=== PATIENT | male | born 1940 | race Caucasian/White ===

== ENCOUNTER 2020-02-20 10:10 | IRF | payer MEDICARE, OTHER, SELFPAY ==
--- NOTE | 2020-02-20 10:25 | ADMGEN ---
This patient, Weston Denise, was admitted to [facility] Room 220-02. Patient/family oriented to hospital policies and general routines including ID bracelet, bed and alarms, visiting hours, pain management, procedures, bathroom and other care routines, personal items, smoking policy, room service/diet, and visiting hours. Information on how to activate the Rapid Response Team has been discussed. Patient/Family are encouraged to report perceived risks to care and to ask questions if they do not understand what they are told or what they should do. 1010 Patient arrived to floor, accompanied by daughter,, in own w/c. He is alert and oriented, no c/o pain or discomfort at this time. Was transported via private auto
--- NOTE | 2020-02-20 10:30 | PC.NURSE ---
All meds confirmed with [facility] pharmacy to be current and up to date as entered
[2020-02-20 10:47] VITALS: BP 151/51; PULSE 82; RESP 20; TEMP 36.3; O2SAT 100; BMI 28.2
[2020-02-20 10:56] VITALS: BP 151/51; PULSE 82; RESP 20; TEMP 36.3; O2SAT 100; BMI 28.2
[2020-02-20 11:12] VITALS: BMI 27.4
--- NOTE | 2020-02-20 11:37 | WPDREHABHP ---
H&P: HPI History of Present Illness Date/Time: 02/20/20 11:37 HISTORY OF PRESENT ILLNESS: The patient's primary rehab impairment category is [] amputation of the left lower extremity The etiologic diagnosis is [] peripheral vascular disease is status post left [id number] amputation I saw this patient [id number] on [] February 20, 2020 at 11:45 a.m. The patient is a [] 79 years old right-handed male who presented to [facility] in [place] to establish care following a left anlfo-cez-rluk amputation on October 24, 2019 due to complication of severe peripheral vascular disease, diabetes mellitus with recalcitrant wounds, and osteomyelitis. Prior to the amputation, the patient was totally independent at ambulation level. The postoperative course was uncomplicated. The patient verbally expressed his desire to ambulate with a prosthesis and be independent at ambulation level with all ADLs / IADL S. at this time, the patient requires supervision, the patient's stump has healed and he has received his left permanent prosthesis. He is ready to complete intensive prosthetic training. The patient's vascular surgeon verifies that the patient needs inpatient acute rehabilitation for prosthetic training due to his left [id number]-[id number] amputation. The physician certify that the patient can tolerate physical and occupational therapy for 3 hours per day, 5 days a week. His medical status is subject to change given the sudden dramatic change in activity level. The patient requires nursing services for infection protection , medical management,diabetes management, skin integrity management and care and patient education. He will require close monitoring of his blood pressure blood sugar as well as his skin integrity in light of this change in mobility. The patient currently demonstrates decreased strength and endurance, impaired balance, and gait dysfunction. An intensive 5 day course is anticipated to return the patient to an independent level at ambulation level. COVID: the patient has not travelled outside the [place] or head contact with someone who is ill that has traveled outside the [place] in the past 21 days. The patient has not traveled to an area of the [place] that is experiencing known transmission of the Coronavirus and has not had close personal contact with anyone that has ,the patient does not have a fever, the patient is not experiencing lower respiratory illness symptoms therapy was initiated at the acute care facility and the patient was transferred to us from home on February 20, 2020 falls or surgery patient has had no major surgery in the last 100 days. The patient had major surgery on 10/24 2019, the patient has no had any falls in the past year, The patient has had no fall with injury in the past years The patient has had [no] major surgeries in the 100 days prior to admission, had [no] falls in the past year, had [no] falls with injury in the past year. PAST MEDICAL HISTORY: [] congestive heart failure, diabetes mellitus type 2, myocardial infarction in 2002, arthritis, CAD status post CABG x6, left heel ulcer with wound VAC placement, hyperlipidemia, hypertension, bilateral lower extremity peripheral neuropathy, osteomyelitis, peptic ulceration in 2014, peripheral vascular disease or bilateral lower extremities documented in November of 2018. 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 Patient is . The patient is a current smokeless tobacco user. He denies smoking tobacco, alcohol use, or illicit drugs use. FAMILY HISTORY: [] Mother with cancer, brother with cardiac problem [email or web address]
[2020-02-20 17:51] LABS: Glucose Point of Care 88 (65-105)
[2020-02-20 20:00] VITALS: PULSE 52; RESP 20; O2SAT 96
[2020-02-20] MEDS: INSULIN GLARGINE (*BKC) 100 UNITS/ML 40 UNITS SUB-Q (20:02)
[2020-02-20] MEDS: PRAVASTATIN SODIUM 20 MG TABLET 40 MG PO (20:02)
[2020-02-20 20:07] VITALS: BP 115/43; PULSE 52; RESP 20; TEMP 36.6; O2SAT 96
[2020-02-20 20:52] LABS: Glucose Point of Care 128 (65-105)
[2020-02-21 04:59] LABS: Basophils Absolute Auto 0.1 K/mm3 (0.0-0.1); Basophils Percent Auto 0.6 % (0.2-1.2); Eosinophils Absolute Auto 0.1 K/mm3 (0-0.3); Eosinophils Percent Auto 1.1 % (0-4.4); Hematocrit 32.9 % (42.0-52.0); Hemoglobin 10.9 g/dL (14.0-18.0); Immature Granulocyte Absolute 0.06 K/mm3 (0.00-0.031); Immature Granulocyte Percent A 0.7 % (0-0.5); Lymphocytes Absolute Auto 2.24 K/mm3 (0.9-3.2); Lymphocytes Percent Auto 25.3 % (18.3-44.2); Mean Corpuscular HGB Conc 33.1 g/dl (32-36); Mean Corpuscular Hemoglobin 27.5 pg (26-34); Mean Corpuscular Volume 82.9 fl (80-100); Mean Platelet Volume 11.1 fl (7.4-10.4); Monocytes Absolute Auto 0.8 K/mm3 (0.1-0.6); Monocytes Percent Auto 8.8 % (2.6-8.5); Neutrophils Absolute Auto 5.6 K/mm3 (1.3-6.7); Neutrophils Percent Auto 63.5 % (45.5-73.1); Platelet Count Result 225 k/mm3 (150-375); Red Blood Count 3.97 M/mm3 (4.6-6.20); Red Cell Distribution Width 13.8 % (11.5-14.5); White Blood Count 8.8 K/mm3 (4.5-10.0)
[2020-02-21 05:20] LABS: Anion Gap 9 mmol/L (8-16); Blood Urea Nitrogen 21 mg/dL (9-20); Carbon Dioxide 27 mmol/L (22-30); Chloride 94 mmol/L (98-107); Estimated CRCL calculation 72 ml/min; Estimated Glomerular Filt Rate > 60; Glucose 68 mg/dL (75-110); Potassium 4.2 mmol/L (3.4-5.0); Sodium 130 mmol/L (137-145)
[2020-02-21 05:22] VITALS: BP 128/60; PULSE 68; RESP 18; TEMP 36.4; O2SAT 97
[2020-02-21 05:40] LABS: Hemoglobin A1C 6.5 % (<5.7)
[2020-02-21 07:27] LABS: Glucose Point of Care 71 (65-105)
[2020-02-21 08:19] VITALS: PULSE 70
[2020-02-21] MEDS: lisinopriL 10 MG TABLET PO (08:19)
[2020-02-21] MEDS: hydroCHLOROthiazide 12.5 MG CAPSULE PO (08:19)
[2020-02-21] MEDS: metFORMIN HCL XR 500 MG TAB.SR.24H 1000 MG PO ×2 (08:19→16:58)
[2020-02-21] MEDS: METOPROLOL SUCCINATE EXT REL 50 MG TABCR PO (08:19)
[2020-02-21 11:55] VITALS: BMI 27.4
[2020-02-21 14:00] VITALS: BP 99/47; PULSE 76; RESP 18; TEMP 36.3; O2SAT 95
[2020-02-21] MEDS: PRAVASTATIN SODIUM 20 MG TABLET 40 MG PO (20:25)
[2020-02-21 20:27] VITALS: BP 110/50; PULSE 75; RESP 18; TEMP 36.1; O2SAT 97
[2020-02-21] MEDS: INSULIN GLARGINE (*BKC) 100 UNITS/ML 40 UNITS SUB-Q (20:37)
[2020-02-22 02:43] LABS: Glucose Point of Care 134 (65-105)
[2020-02-22 05:19] VITALS: BP 135/57; PULSE 58; RESP 18; TEMP 36.1; O2SAT 98
[2020-02-22 06:28] LABS: Glucose Point of Care 79 (65-105)
[2020-02-22] MEDS: hydroCHLOROthiazide 12.5 MG CAPSULE PO (09:35)
[2020-02-22] MEDS: metFORMIN HCL XR 500 MG TAB.SR.24H 1000 MG PO ×2 (09:35→17:31)
[2020-02-22] MEDS: lisinopriL 10 MG TABLET PO (09:35)
[2020-02-22 09:36] VITALS: PULSE 58
[2020-02-22] MEDS: METOPROLOL SUCCINATE EXT REL 50 MG TABCR PO (09:36)
--- NOTE | 2020-02-22 09:53 | WPDNEURORHBP ---
Subjective Date/time seen: 02/22/20 09:53 79 years old has been admitted to the [facility] rehab floor for the complaints of amputation of the left lower extremity secondary to peripheral vascular disease and requiring the training with the prosthesis. Routine lab up until now is unremarkable except the patient is anemic Review of Systems Review of Systems: All systems reviewed & are unremarkable except as noted in HPI and below Functional Status Ambulation Ability Ability to Ambulate 10 Feet: Minimum Assistance X 1 Ambulation Assistive Devices: Walker, Wheeled Exam Narrative: Exam Narrative: on examination patient is awake alert cooperative in no obvious acute distress speech nor dysphasic not dysarthric ear nose throat examination normal neck supple heart regular lungs clear abdomen is soft and neuro examination is essentially unchanged at this stage is comfortable with the prosthesis and working hard to get the complete training Objective Data Vital Signs Vital Signs: Vital Signs - 24 hr 02/21/20 14:00 02/21/20 20:27 02/22/20 05:19 Temperature 36.3 C L 36.1 C L 36.1 C L Pulse Rate 76 75 58 L Respiratory Rate 18 18 18 Blood Pressure 99/47 L 110/50 L 135/57 L Pulse Oximetry 95 97 98 02/22/20 09:36 Temperature Pulse Rate 58 L Respiratory Rate Blood Pressure Pulse Oximetry Intake/Output Intake/Output: Intake & Output 02/19/20 02/20/20 02/21/20 02/22/20 23:59 23:59 23:59 23:59 Intake Total 480 720 240 Balance 480 720 240 Meds/Results Medications: Active Medications Generic Name Dose Route Start Last Admin Trade Name Freq PRN Reason Stop Dose Admin Dextrose 12.5 gm 02/20/20 10:40 Dextrose 50% 25 Gm/50 Ml Syringe IV PUSH PRN PRN Hypoglycemia Protocol Glucagon 1 mg 02/20/20 10:40 Glucagon For Inj 1 Mg Vial IM PRN PRN Hypoglycemia Protocol Glucose 15 gm 02/20/20 10:40 Glucose Oral Gel 15 Gm Of Glucse In 37.5 Gm Tube PO PRN PRN Hypoglycemia Protocol Hydrochlorothiazide 12.5 mg 02/21/20 09:00 02/22/20 09:35 Hydrochlorothiazide 12.5 Mg Capsule PO 12.5 mg DAILY ARTEMIO Administration Dextrose 1,000 mls @ 100 mls/hr 02/20/20 10:40 Dextrose 5% 1,000 Ml IVPB PRN PRN Hypoglycemia Protocol Insulin Glargine 40 units 02/20/20 21:00 02/21/20 20:37 Insulin Glargine (*Bkc) 100 Units/Ml SUB-Q 40 units HS ARTEMIO Administration Lisinopril 10 mg 02/21/20 09:00 02/22/20 09:35 Lisinopril 10 Mg Tablet PO 10 mg DAILY RATEMIO Administration Metformin HCl 1,000 mg 02/20/20 17:00 02/22/20 09:35 Metformin Hcl Xr 500 Mg Tab.Sr.24h PO 1,000 mg BID ARTEMIO Administration Metoprolol Succinate 50 mg 02/21/20 09:00 02/22/20 09:36 Metoprolol Succinate Ext Rel 50 Mg Tabcr PO 50 mg DAILY ARTEMIO Administration Pravastatin Sodium 40 mg 02/20/20 21:00 02/21/20 20:25 Pravastatin Sodium 20 Mg Tablet PO 40 mg HS ARTEMIO Administration Labs Labs: Laboratory Results - last 24 hr 02/21/20 02/22/20 20:31 06:13 POC Capillary Glucose 134 H 79 Progress Note: A&P Additional Plan stable continue the treatment as such
--- NOTE | 2020-02-22 10:35 | RPD ---
INDIVIDUALIZED PLAN OF CARE FOR Weston Denise Brief Synthesis of Pre-Admission Screen, Post-Admission Evaluation and Therapy Evaluations: The patient presents to rehab with peripheral vascular disease s/p left below the knee amputation. Comorbidities include CHF, diabetes mellitus type 2, arthritis, CAD s/p CABG x6, hyperlipidemia, hypertension, peripheral neuropathy, and peripheral vascular disease. This patient requires intensive therapies to restore lost function due to the provision of a new prosthetic leg in order to maximize his functional level of independence and quality of life. The complexity of the patient's needs require an inpatient rehab hospital stay with a physician-led interdisciplinary team approach. The patient?s needs will be best met in an intensive program vs. at a lower level of care. The patient requires physician services for medical oversight, coordination of care, diabetes mellitus management, and pain management. His medical status is subject to change given a sudden dramatic change in activity level. The patient requires nursing services for infection protection, medication management, skin integrity management and care, and patient education. He will require close monitoring of his blood sugars as well as his skin integrity in light of this change in mobility. Deficits include:ADLs, Balance, Endurance, Family Training/Education, Mobility, Pain Management, ROM, Safety, Strength, and Transfers Museum Technician/Case Management for: Discharge Planning and Patient/Family Counseling Physical Therapy: 5 days per week for 90 minutes. Treatments may include: Therapeutic Exercise, Gait Training, Neuromuscular Re-education, Transfer Training, Community Reintegration, Bed Mobility, Patient/Family Education, Wheelchair Mobility Group Therapy/Concurrent Therapy Rationales: -Improve attention span during functional activities in a distracted environment. -Enhance problem solving and/or adequate judgment skills during functional activities in a distracted environment. -Promote increased safety awareness in a distracted environment to reduce fall risk with functional tasks, transfers, and ambulation to allow a more safe, self-sufficient return to the home environment. -Improve dynamic balance skills to promote safety and independence with functional activities in a distracted environment for maximum gain. Occupational Therapy: 5 days per week for 90 minutes. Treatments may include: Therapeutic Exercise, Therapeutic Activity, Cognitive Training, Self-Care Transfer Training, Community Reintegration, Home Management, Patient/Family Education, Wheelchair Mobility Training, Energy Conservation Training Group Therapy/Concurrent Therapy Rationales: -Allow therapist to observe and teach generalization and carry-over of skills learned in individual therapy. -Enhance problem solving and sequencing skills during therapeutic activities in a distracted environment. -Promote increased safety awareness in a realistic setting to reduce fall risk with functional tasks due to visual and verbal distractions. -Increase functional level with ADLs, ADL transfers and use of adaptive equipment through therapeutic activities with others while promoting safety to allow a more safe, self-sufficient return home. Medical Prognosis: Good Anticipated Length of Stay: 5 days Rehab Goals: Eating Goal: 06-Independent Oral Hygiene Goal: 06-Independent Toileting Hygiene Goal: 04-Supervision or Touching Assistance Shower/Bathe Self Goal: 05-Setup or Clean Up Assistance Upper Body Dressing Goal: 06-Independent Lower Body Dressing Goal: 04-Supervision or Touching Assistance Putting On/Taking Off Footwear Goal: 06-Independent Rolling Left and Right Goal: 06-Independent Sit to Lying Goal: 06-Independent Lying to Sitting on Side of Bed Goal: 06-Independent Sit to Stand Goal: 04-Supervision or Touching Assistance Chair/Rqp-ob-Uuxor Transfer Goal: 04-Supervision or Touching Assistance Toil
[2020-02-22 14:00] VITALS: BP 138/67; PULSE 82; RESP 20; TEMP 36.8; O2SAT 98
[2020-02-22] MEDS: PRAVASTATIN SODIUM 20 MG TABLET 40 MG PO (21:10)
[2020-02-22] MEDS: INSULIN GLARGINE (*BKC) 100 UNITS/ML 40 UNITS SUB-Q (21:12)
[2020-02-22 21:41] LABS: Glucose Point of Care 163 (65-105)
[2020-02-22 22:00] VITALS: BP 110/47; PULSE 51; RESP 17; TEMP 36.5; O2SAT 99
[2020-02-23 06:00] VITALS: BP 115/51; PULSE 52; RESP 16; TEMP 36.5; O2SAT 98
[2020-02-23 06:31] LABS: Glucose Point of Care 85 (65-105)
[2020-02-23] MEDS: metFORMIN HCL XR 500 MG TAB.SR.24H 1000 MG PO ×2 (09:28→18:10)
[2020-02-23 09:29] VITALS: PULSE 58
[2020-02-23] MEDS: METOPROLOL SUCCINATE EXT REL 50 MG TABCR PO (09:29)
[2020-02-23] MEDS: hydroCHLOROthiazide 12.5 MG CAPSULE PO (09:29)
[2020-02-23] MEDS: lisinopriL 10 MG TABLET PO (09:29)
[2020-02-23 09:30] VITALS: PULSE 62; RESP 16; O2SAT 98
--- NOTE | 2020-02-23 11:36 | WPDNEURORHBP ---
Subjective Date/time seen: 02/23/20 11:36 79 years old has been admitted to the rehab floor for the amputation of the left lower extremity 2nd to peripheral vascular disease this admission has been basically for the prosthetic training which he is involved in and definitely improving and feels more comfortable Review of Systems Review of Systems: All systems reviewed & are unremarkable except as noted in HPI and below Functional Status Ambulation Ability Ability to Ambulate 10 Feet: Minimum Assistance X 1 Ambulation Assistive Devices: Walker, Wheeled Exam Narrative: Exam Narrative: on examination he is awake alert cooperative heart regular with no murmur lungs clear abdomen is soft normal bowel sounds nontender neurological examination unchanged Objective Data Vital Signs Vital Signs: Vital Signs - 24 hr 02/22/20 14:00 02/22/20 22:00 02/23/20 06:00 Temperature 36.8 C 36.5 C 36.5 C Pulse Rate 82 51 L 52 L Respiratory Rate 20 17 16 Blood Pressure 138/67 110/47 L 115/51 L Pulse Oximetry 98 99 98 02/23/20 09:29 Temperature Pulse Rate 58 L Respiratory Rate Blood Pressure Pulse Oximetry Intake/Output Intake/Output: Intake & Output 02/20/20 02/21/20 02/22/20 02/23/20 23:59 23:59 23:59 23:59 Intake Total 480 720 720 360 Balance 480 720 720 360 Meds/Results Medications: Active Medications Generic Name Dose Route Start Last Admin Trade Name Freq PRN Reason Stop Dose Admin Dextrose 12.5 gm 02/20/20 10:40 Dextrose 50% 25 Gm/50 Ml Syringe IV PUSH PRN PRN Hypoglycemia Protocol Glucagon 1 mg 02/20/20 10:40 Glucagon For Inj 1 Mg Vial IM PRN PRN Hypoglycemia Protocol Glucose 15 gm 02/20/20 10:40 Glucose Oral Gel 15 Gm Of Glucse In 37.5 Gm Tube PO PRN PRN Hypoglycemia Protocol Hydrochlorothiazide 12.5 mg 02/21/20 09:00 02/23/20 09:29 Hydrochlorothiazide 12.5 Mg Capsule PO 12.5 mg DAILY ARTEMIO Administration Dextrose 1,000 mls @ 100 mls/hr 02/20/20 10:40 Dextrose 5% 1,000 Ml IVPB PRN PRN Hypoglycemia Protocol Insulin Glargine 40 units 02/20/20 21:00 02/22/20 21:12 Insulin Glargine (*Bkc) 100 Units/Ml SUB-Q 40 units HS ARTEMIO Administration Lisinopril 10 mg 02/21/20 09:00 02/23/20 09:29 Lisinopril 10 Mg Tablet PO 10 mg DAILY ARTEMIO Administration Metformin HCl 1,000 mg 02/20/20 17:00 02/23/20 09:28 Metformin Hcl Xr 500 Mg Tab.Sr.24h PO 1,000 mg BID ARTEMIO Administration Metoprolol Succinate 50 mg 02/21/20 09:00 02/23/20 09:29 Metoprolol Succinate Ext Rel 50 Mg Tabcr PO 50 mg DAILY ARTEMIO Administration Pravastatin Sodium 40 mg 02/20/20 21:00 02/22/20 21:10 Pravastatin Sodium 20 Mg Tablet PO 40 mg HS ARTEMIO Administration Labs Labs: Laboratory Results - last 24 hr 02/22/20 02/23/20 21:12 06:29 POC Capillary Glucose 163 H 85 Progress Note: A&P Additional Plan stable going to the prosthetic training
[2020-02-23 14:00] VITALS: BP 100/54; PULSE 80; RESP 18; TEMP 36.4; O2SAT 100
[2020-02-23] MEDS: PRAVASTATIN SODIUM 20 MG TABLET 40 MG PO (20:06)
[2020-02-23] MEDS: INSULIN GLARGINE (*BKC) 100 UNITS/ML 40 UNITS SUB-Q (20:11)
[2020-02-23 21:40] VITALS: BP 116/50; PULSE 52; RESP 20; TEMP 36.9; O2SAT 99
[2020-02-24 00:31] LABS: Glucose Point of Care 189 (65-105)
[2020-02-24 05:50] VITALS: BP 130/57; PULSE 71; RESP 20; TEMP 36.6; O2SAT 97
[2020-02-24 07:15] LABS: Glucose Point of Care 84 (65-105)
[2020-02-24 08:32] VITALS: PULSE 74
[2020-02-24] MEDS: METOPROLOL SUCCINATE EXT REL 50 MG TABCR PO (08:32)
[2020-02-24] MEDS: hydroCHLOROthiazide 12.5 MG CAPSULE PO (08:32)
[2020-02-24] MEDS: lisinopriL 10 MG TABLET PO (08:32)
[2020-02-24] MEDS: metFORMIN HCL XR 500 MG TAB.SR.24H 1000 MG PO (08:32)
[2020-02-24 14:00] VITALS: BP 127/62; PULSE 82; RESP 20; TEMP 36.6; O2SAT 98
[2020-02-24 20:00] VITALS: O2SAT 100
[2020-02-24] MEDS: PRAVASTATIN SODIUM 20 MG TABLET 40 MG PO (20:55)
[2020-02-24 20:59] LABS: Glucose Point of Care 124 (65-105)
[2020-02-24 21:06] VITALS: BP 115/46; PULSE 70; RESP 16; TEMP 36.9; O2SAT 100
[2020-02-25 06:00] VITALS: BP 123/54; PULSE 54; RESP 16; TEMP 36.1; O2SAT 99
[2020-02-25 06:38] LABS: Glucose Point of Care 106 (65-105)
[2020-02-25 08:42] VITALS: PULSE 60
[2020-02-25] MEDS: METOPROLOL SUCCINATE EXT REL 50 MG TABCR PO (08:42)
[2020-02-25] MEDS: lisinopriL 10 MG TABLET PO (08:43)
[2020-02-25] MEDS: hydroCHLOROthiazide 12.5 MG CAPSULE PO (08:43)
[2020-02-25] MEDS: metFORMIN HCL XR 500 MG TAB.SR.24H 1000 MG PO (08:43)
[2020-02-25 08:45] VITALS: PULSE 62; RESP 16; O2SAT 98
--- NOTE | 2020-02-28 12:10 | PM.DS ---
DS: Admitting Diagnosis Admitting Diagnosis Admitting Diagnosis: Left BKA/prosthetic training ADMISSION FUNCTION: 79 years old right-handed male admitted to the rehab floor of [facility] on the recommendation [facility] and with the information that patient had left [id number] amputation on October 24, 2019 due to complication of severe peripheral vascular disease in addition to the underlying diabetes mellitus 2. Osteomyelitis and his desire to ambulate with a prosthesis and be independent at ambulation level with all ADLs and IADLs as patient is stump had healed and he had received left permanent prosthesis he needed to complete intensive prosthetic training. He has comorbid conditions of type 2 diabetes mellitus, coronary artery disease status post CABG x6, hyperlipidemia, hypertension, bilateral lower extremity peripheral neuropathy, and peripheral vascular disease . At the time of admission his level of functions were as follows. Eating Independent Toileting Hygiene partial assistance Shower/Bathing partial assistance but bathing assistance patient refused Upper Body Dressing set up or clean up Lower Body Dressing partial assistance Donning/Bonduel Footwear supervision Rolling Left and Right independent Sit to Lying independent Lying to Sitting independent Sit to Stand partial assistance Bed to Chair Transfers partial assistance Toilet Transfers partial assistance Car Transfers partial assistance Walking 10' not applicable Walking 50' with Two Turns not applicable Walking 150' not applicable Curb or Step dependent 4 Steps not applicable 12 Steps not applicable Picking Up Object super B [Wheelchair Mobility 50'] independent [Wheelchair Mobility 150'] not applicable GOALS: Eating [INDEPENDENT] Oral Care [INDEPENDENT] Toileting Hygiene supervision Shower/Bathing setup or clean up Upper Body Dressing [INDEPENDENT] Lower Body Dressing supervisionENT] Rolling Left and Right [INDEPENDENT] Sit to Lying [INDEPENDENT] Lying to Sitting [INDEPENDENT] Sit to Stand supervision Bed to Chair Transfers supervision Toilet Transfers supervision Car Transfers supervision Walking 10' supervision Walking 50' with Two Turns supervision Walking 150' not applicable Curb or Step partial medical assistant secretary 4 Steps [INDEPENDENT] 12 Steps not applicable Picking Up Object [INDEPENDENT] [Wheelchair Mobility 50'] [INDEPENDENT] [Wheelchair Mobility 150'] [INDEPENDENT] DISCHARGE PERFORMANCE: Eating [INDEPENDENT] Oral Care super Toileting Hygiene setup or clean up Shower/Bathing set up or clean up] Lower Body Dressing set up or clean Donning/Bonduel Footwear setup for clean up Rolling Left and Right [INDEPENDENT] Sit to Lying [INDEPENDENT] Lying to Sitting [INDEPENDENT] Sit to Stand supervising Bed to Chair Transfers supervision Toilet Transfers set up or clean a Car Transfers supervision Walking 10' partial medical assistant secretary Walking 50' with Two Turns partial medical assistant secretary Walking 150' not applicable 4 Steps partial medical assistant secretary 12 Steps not applicable Picking Up Object supervision [Wheelchair Mobility 50'] [INDEPENDENT] [Wheelchair Mobility 150'] [INDEPENDENT] The patient had [no falls]. and was discharged to his home with outpatient therapy and his condition improved and also stable DS: Summary Time Spent with Patient Time attestation: Total time spent providing and/or coordinating discharge services: Discharge Plan Discharge Discharging Clinician: Antonio oGre Patient Disposition: Home, Self-Care Activity: may shower and as tolerated Diet: as tolerated and diabetic Discharge Instructions: continue to check your blood sugars at home at least twice daily. Patient Instructions: Antibiotic Form, Heart Failure (GEN), How to Stop Smoking (DC), Pain Management in Older Adults (GEN), Basic Carbohydrate Counting (DC), Below the Knee Amputation (GEN), Left-sided and Right-sided Hear
== END 2020-02-25 11:20 | disposition home or self-care (01) | DRG 560 ==
PROVIDERS: Psychiatry & Neurology Neurology; Admitting Provider Psychiatry & Neurology Neurology; PCP Internal Medicine; Visit Provider Psychiatry & Neurology Neurology
DX: Z47.81 Encounter for orthopedic aftercare following surgical amputation (principal); L97.429 Non-pressure chronic ulcer of left heel and midfoot with unspecified severity; Z89.512 Acquired absence of left leg below knee; E11.51 Type 2 diabetes mellitus with diabetic peripheral angiopathy without gangrene; E11.621 Type 2 diabetes mellitus with foot ulcer; I11.0 Hypertensive heart disease with heart failure; E11.42 Type 2 diabetes mellitus with diabetic polyneuropathy; E78.5 Hyperlipidemia, unspecified; I50.9 Heart failure, unspecified; I25.2 Old myocardial infarction; I25.10 Atherosclerotic heart disease of native coronary artery without angina pectoris; M19.90 Unspecified osteoarthritis, unspecified site; Z95.1 Presence of aortocoronary bypass graft; Z79.84 Long term (current) use of oral hypoglycemic drugs; Z28.21 Immunization not carried out because of patient refusal
CPT/HCPCS: 36415; 80048; 83036; 85025; 97110; 97116; 97161; 97166; 97530; 97535; 97542; A9270; J1815